=== PATIENT | female | born 1975 ===

== ENCOUNTER → 2020-03-25 09:41 | Outpatient (CLI) | payer OTHER | END | disposition home or self-care (01) | LOC: LAB 09:41 | DX: E03.8 Other specified hypothyroidism (principal); Z00.00 Encounter for general adult medical examination without abnormal findings; E78.89 Other lipoprotein metabolism disorders ==

== ENCOUNTER 2020-07-02 10:38 | Outpatient (CLI) | payer OTHER | END 2020-07-02 10:43 | disposition home or self-care (01) | LOC: LAB 10:38 | DX: R73.09 Other abnormal glucose (principal); E66.09 Other obesity due to excess calories; Z68.38 Body mass index [BMI] 38.0-38.9, adult; Z12.11 Encounter for screening for malignant neoplasm of colon; Z13.820 Encounter for screening for osteoporosis; Z13.220 Encounter for screening for lipoid disorders; Z13.1 Encounter for screening for diabetes mellitus; Z12.39 Encounter for other screening for malignant neoplasm of breast; Z13.228 Encounter for screening for other metabolic disorders ==

== ENCOUNTER → 2020-07-05 | Outpatient (CLI) | payer OTHER | END | disposition home or self-care (01) | LOC: MAMO-SONO 10:36 | PROVIDERS: ATTEND Internal Medicine | DX: Z12.31 Encounter for screening mammogram for malignant neoplasm of breast (principal); E66.09 Other obesity due to excess calories; R73.09 Other abnormal glucose; Z68.38 Body mass index [BMI] 38.0-38.9, adult; Z12.11 Encounter for screening for malignant neoplasm of colon; Z13.820 Encounter for screening for osteoporosis; Z13.220 Encounter for screening for lipoid disorders; Z13.1 Encounter for screening for diabetes mellitus; Z13.228 Encounter for screening for other metabolic disorders ==

== ENCOUNTER 2020-07-21 10:04 | Outpatient (CLI) | payer OTHER | END 2020-07-21 10:11 | disposition home or self-care (01) | LOC: NUCLEAR 10:04 | PROVIDERS: ATTEND Internal Medicine | DX: M81.0 Age-related osteoporosis without current pathological fracture (principal) ==

== ENCOUNTER 2020-08-18 08:44 | Outpatient (CLI) | payer OTHER | END 2020-08-18 08:52 | disposition home or self-care (01) | LOC: SONOGRAMA 08:44 → MAMO-SONO 09:15 | DX: R92.1 Mammographic calcification found on diagnostic imaging of breast (principal) ==